=== PATIENT | male | born 1975 | race Hispanic/Latino ===

== ENCOUNTER 2017-05-01 21:04 | Emergency (ER) | payer SELFPAY ==
[2017-05-01] MEDS ORDERED: Phenergan 25 MG INJ IV ONE (21:53)
[2017-05-01] MEDS ORDERED: Hydromorphone 1 mg/ml Ampule IV ONE (21:53)
[2017-05-01] MEDS ORDERED: ROCEPHIN 1 Gm-D5w 50 ml Bag** 1 G/50 ML IVPB IV STA (21:55)
--- NOTE | 2017-05-01 21:57 | ERPHSYRPT ---
- History of Present Illness Time Seen by Provider: 05/01/17 21:38 Source: patient, family (STEP-DAUGHTER) Exam Limitations: no limitations Patient Subjective Stated Complaint: pt states that he mac had fever at home and for approx 9 days he has had pain in his penis and scrotum with swelling in his scrotum and pain when he walks Triage Nursing Assessment: pt awake and alert. 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 skin hot and dry. respriations nonlabored with lungs cta. pt ambulatory with slow gait noted, swelling noted to scrotum Physician History: FOR THE PAST WEEK PT HAS HAD A SUBJECTIVE FEVER, NON-PRODUCTIVE COUGH AND SWELLING IN HIS RIGHT TESTICLE; FOR THE PAST 9 DAYS DYSURIA. Allergies/Adverse Reactions: No Known Drug Allergies Allergy (Unverified 05/01/17 22:21) Hx Tetanus, Diphtheria Vaccination/Date Given: No Hx Influenza Vaccination/Date Given: No Hx Pneumococcal Vaccination/Date Given: No Immunizations Up to Date: No - Review of Systems Constitutional: Fever Respiratory: Cough Genitourinary Symptoms: Dysuria, Testicle Pain (RIGHT) All Other Systems: Reviewed and Negative - Past Medical History Pertinent Past Medical History: No Neurological History: No Pertinent History ENT History: No Pertinent History Cardiac History: No Pertinent History Respiratory History: No Pertinent History Endocrine Medical History: No Pertinent History Musculoskeletal History: No Pertinent History GI Medical History: No Pertinent History History: No Pertinent History Psycho-Social History: No Pertinent History Male Reproductive Disorders: No Pertinent History - Past Surgical History Past Surgical History: Yes Gastrointestinal: Appendectomy - Social History Smoking Status: Never smoker Exposure to second hand smoke: Yes Drug Use: none Patient Lives Alone: No - Nursing Vital Signs Nursing Vital Signs: Initial Vital Signs Temperature 101.5 F 05/01/17 21:21 Pulse Rate 110 H 05/01/17 21:21 Respiratory Rate 16 05/01/17 21:21 Blood Pressure 143/89 05/01/17 21:21 O2 Sat by Pulse Oximetry 97 05/01/17 21:21 Pain Scale Pain Intensity 4 - Physical Exam General Appearance: alert Eye Exam: PERRL/EOMI Ears, Nose, Throat Exam: TMs normal, pharynx normal, moist mucous membranes Neck Exam: normal inspection Respiratory Exam: lungs clear Cardiovascular Exam: normal heart sounds Gastrointestinal/Abdomen Exam: soft, normal bowel sounds Male Genitalia Exam: testicular tenderness (RIGHT TESTICLE MILDLY EDEMATOUS AND TENDER), No hernia Back Exam: normal range of motion Extremity Exam: normal inspection, No pedal edema Neurologic Exam: alert, cooperative Skin Exam: warm, dry SpO2 Interpretation: normal SpO2: 97 Oxygen Delivery: Room Air - Course Nursing assessment & vital signs reviewed: Yes - Radiology Ultrasound Exam Scrotal Ultrasound: Other (TECH REPORT: EPIDIDYMITIS; NO TORSION.) Ordered Tests: Active Orders 24 hr Category Date Time Status IV Insertion STAT Care 05/01/17 21:53 Active TESTICLE [US] Stat Exams 05/01/17 21:55 Ordered AMYLASE Stat Lab 05/01/17 22:05 Completed BLOOD CULTURE Stat Lab 05/01/17 22:05 Received CBC W DIFF Stat Lab 05/01/17 22:05 Completed CMP Stat Lab 05/01/17 22:05 Completed Erythrocyte Sedimentation Rate Stat Lab 05/01/17 22:05 Completed LIPASE Stat Lab 05/01/17 22:05 Completed MAG [MAGNESIUM] Stat Lab 05/01/17 22:05 Completed UA W/ MICROSCOPIC Stat Lab 05/01/17 22:17 Completed Medication Summary Generic Name Dose Route Start Last Admin Trade Name Freq PRN Reason Stop Dose Admin Sodium Chloride 1,000 mls @ 100 mls/hr 05/01/17 22:00 05/01/17 22:21 Sodium Chloride 0.9% 1000 Ml IV 05/31/17 21:59 100 mls/hr .Q10H SUNI Administration Discontinued Medications Generic Name Dose Route Start Last Admin Trade Name Freq PRN Reason Stop Dose Admin Acetaminophen 650 mg 05/01/17 22:01 05/01/17 22:23 Tylenol 325 Mg PO 05/01/17 22:02 650 mg STAT ONE Administration Acetaminophen Confirm 05/01/17 22:18 Tylenol 325 Mg Administered 05/01/17 22:19 Dose 650 mg .ROUTE .STK-MED ONE Hydromorphone HCl 1 mg 05/01/17 21:53 05/01/17 22:28 Hydromorphone 1 Mg/Ml Ampule IV 05/01/17 21:54 1 mg STAT ONE Administration Hydromorphone HCl Confirm 05/01/17 22:18 Hydromorphone 1 Mg/Ml Ampule Administered 05/01/17 22:19 Dose 1 mg .ROUTE .STK-MED ONE Ceftriaxone Sodium/Dextrose 1 g in 50 mls @ 100 mls/hr 05/01/17 21:55 22:31 Rocephin 1 Gm-D5w 50 Ml Bag IV 05/01/17 22:24 100 mls/hr STAT STA Administration Ceftriaxone Sodium/Dextrose Confirm 05/01/17 22:18 Rocephin 1 Gm-D5w 50 Ml Bag Administered 05/01/17 22:19 Dose 1 g in 50 mls @ ud IV .STK-MED ONE Promethazine HCl 12.5 mg 05/01/17 21:53 05/01/17 22:24 Phenergan 25 Mg Inj IV 05/01/17 21:54 12.5 mg STAT ONE Administration Promethazine HCl Confirm 05/01/17 22:17 Phenergan 25 Mg Inj Administered 05/01/17 22:18 Dose 25 mg .ROUTE .STK-MED ONE Lab/Rad Data: Laboratory Result Diagrams 05/01/17 22:05 05/01/17 22:05 Laboratory Results 05/01/17 05/01/17 05/01/17 Range/Units 22:17 22:05 22:05 WBC (4.0-10.5) K/mm3 RBC (4.1-5.6) M/mm3 Hgb (12.5-18.0) gm/dl Hct (42-50) % MCV (78-100) fl MCH (26-32) pg MCHC (32-36) g/dl RDW (11.5-14.0) % Plt Count (150-450) K/mm3 MPV (6-9.5) fl Gran % (36.0-66.0) % Lymphocytes % (24.0-44.0) % Monocytes % (0.0-12.0) % Eosinophils % (0.00-5.0) % Basophils % (0.0-0.4) % Basophils # (0-0.4) ESR 55 H (0-15) mm/hr Sodium (136-145) mEq/L Potassium (3.5-5.1) mEq/L Chloride (98-107) mEq/L Carbon Dioxide (21-32) mEq/L Anion Gap (5-15) MEQ/L BUN (9-20) mg/dL Creatinine (0.55-1.30) mg/dl Estimated GFR ML/MIN Glucose (70-110) MG/DL Calcium (8.5-10.1) mg/dL Magnesium 2.1 (1.8-2.4) mg/dL Total Bilirubin (0.2-1.0) mg/dL AST (15-37) U/L ALT (12-78) U/L Alkaline Phosphatase (46-116) U/L Serum Total Protein (6.4-8.2) gm/dL Albumin (3.4-5.0) g/dL Amylase (25-115) U/L Lipase (73-393) U/L Ur Collection Type VOID Urine Color YELLOW (YELLOW) Urine Appearance CLEAR (CLEAR) Urine pH 6.0 (5-6) Ur Specific [place] 1.015 (1.005-1.025) Urine Protein NEGATIVE (Negative) Urine Ketones NEGATIVE (NEGATIVE) Urine Blood NEGATIVE (0-5) Jesse/ul Urine Nitrite NEGATIVE (NEGATIVE) Urine Bilirubin NEGATIVE (NEGATIVE) Urine Urobilinogen NORMAL (0-1) mg/dL Ur Leukocyte Esterase TRACE (NEGATIVE) Urine Microscopic RBC 0-2 (0-2) /HPF Urine Microscopic WBC 2-5 (0-5) /HPF Urine Bacteria FEW (NEGATIVE) /HPF Urine Mucus SLIGHT (NEGATIVE) /HPF Urine Glucose NEGATIVE (NEGATIVE) mg/dL Specimen Received 05/01/17 2200 05/01/17 05/01/17 Range/Units 22:05 22:05 WBC 13.0 H (4.0-10.5) K/mm3 RBC 4.15 (4.1-5.6) M/mm3 Hgb 13.0 (12.5-18.0) gm/dl Hct 39.0 L (42-50) % MCV 94.0 (78-100) fl MCH 31.3 (26-32) pg MCHC 33.3 (32-36) g/dl RDW 12.7 (11.5-14.0) % Plt Count 243 (150-450) K/mm3 MPV 10.5 H (6-9.5) fl Gran % 69.6 H (36.0-66.0) % Lymphocytes % 15.5 L (24.0-44.0) % Monocytes % 7.8 (0.0-12.0) % Eosinophils % 6.9 H (0.00-5.0) % Basophils % 0.2 (0.0-0.4) % Basophils # 0.03 (0-0.4) ESR (0-15) mm/hr Sodium 139 (136-145) mEq/L Potassium 3.8 (3.5-5.1) mEq/L Chloride 103 (98-107) mEq/L Carbon Dioxide 26.6 (21-32) mEq/L Anion Gap 13.0 (5-15) MEQ/L BUN 14 (9-20) mg/dL Creatinine 1.02 (0.55-1.30) mg/dl Estimated GFR > 60 ML/MIN Glucose 120 H (70-110) MG/DL Calcium 8.9 (8.5-10.1) mg/dL Magnesium (1.8-2.4) mg/dL Total Bilirubin 0.70 (0.2-1.0) mg/dL AST 22 (15-37) U/L ALT 64 (12-78) U/L Alkaline Phosphatase 110 (46-116) U/L Serum Total Protein 8.0 (6.4-8.2) gm/dL Albumin 3.8 (3.4-5.0) g/dL Amylase 54 (25-115) U/L Lipase 182 (73-393) U/L Ur Collection Type Urine Color (YELLOW) Urine Appearance (CLEAR) Urine pH (5-6) Ur Specific [place] (1.005-1.025) Urine Protein (Negative) Urine Ketones (NEGATIVE) Urine Blood (0-5) Jesse/ul Urine Nitrite (NEGATIVE) Urine Bilirubin (NEGATIVE) Urine Urobilinogen (0-1) mg/dL Ur Leukocyte Esterase (NEGATIVE) Urine Microscopic RBC (0-2) /HPF Urine Microscopic WBC (0-5) /HPF Urine Bacteria (NEGATIVE) /HPF Urine Mucus (NEGATIVE) /HPF Urine Glucose (NEGATIVE) mg/dL Specimen Received - Departure Time of Disposition: 23:12 Departure Disposition: Home Clinical Impression: EPIDIDYMITIS Condition: Stable Critical Care Time: No Referrals: DOCTOR,NO FAMILY [Primary Care Provider] - Instructions: Epididymitis Additional Instructions: FOLLOW UP WITH PRIVATE DOCTOR TOMORROW. Prescriptions: Naproxen [Naprosyn] 500 mg PO Q12H PRN PRN #20 tablet PRN Reason: Pain Doxycycline Hyclate 100 mg [Vibramycin 100 MG] 100 mg PO BID #20 tab
[2017-05-01] MEDS ORDERED: Sodium Chloride 0.9% 1000 ML 1,000 ML IV SCH (22:00)
[2017-05-01] MEDS ORDERED: TYLENOL 325 MG PO ONE (22:01)
[2017-05-01] MEDS ORDERED: Phenergan 25 MG INJ ONE (22:17)
[2017-05-01 22:18] LABS: BASOPHIL % 0.2 % (0.0-0.4); Eosinophil % 6.9 % (0.00-5.0); Granulocytes % 69.6 % (36.0-66.0); Lymphocytes % 15.5 % (24.0-44.0); Mean Corpuscular Hemoglobin 31.3 pg (26-32); Mean Platelet Volume 10.5 fl (6-9.5); Monocytes % 7.8 % (0.0-12.0); Platelet Count 243 K/mm3 (150-450); Red Blood Count 4.15 M/mm3 (4.1-5.6); Red Cell Distribution Width 12.7 % (11.5-14.0)
[2017-05-01] MEDS ORDERED: TYLENOL 325 MG ONE (22:18)
[2017-05-01] MEDS ORDERED: Sodium Chloride 0.9% 1000 ML 1,000 ML ONE (22:18)
[2017-05-01] MEDS ORDERED: ROCEPHIN 1 Gm-D5w 50 ml Bag** 1 G/50 ML IVPB IV ONE (22:18)
[2017-05-01] MEDS ORDERED: Hydromorphone 1 mg/ml Ampule ONE (22:18)
[2017-05-01 22:32] LABS: Bilirubin NEGATIVE (NEGATIVE); Blood NEGATIVE Ery/ul (0-5); COMPLETE URINE MICROSCOPIC? YES; Collection Type VOID; Glucose NEGATIVE (NEGATIVE); Leukocyte Esterase TRACE (NEGATIVE)
[2017-05-01 22:33] LABS: ADD URINE CULTURE? NO (NO); Bacteria FEW /HPF (NEGATIVE); Mucus SLIGHT /HPF (NEGATIVE)
[2017-05-01 22:42] LABS: ALBUMIN 3.8 g/dL (3.4-5.0); ALKALINE PHOSPHATASE 110 U/L (46-116); BLOOD UREA NITROGEN 14 mg/dL (9-20); CHLORIDE 103 mEq/L (98-107); Carbon Dioxide 26.6 mEq/L (21-32); Glucose 120 MG/DL (70-110); LIPASE 182 U/L (73-393); Potassium 3.8 mEq/L (3.5-5.1); SGOT/AST 22 U/L (15-37); SGPT/ALT 64 U/L (12-78); SODIUM 139 mEq/L (136-145)
[2017-05-01 23:43] VITALS: BP 128/76; PULSE 96; O2SAT 99
--- NOTE | 2017-05-02 08:49 | XRAY ---
Indication: Pain and swelling. Two-dimensional testicular sonogram performed. Comparison: None Right testicle measures 4.0 x 2.3 x 3.1 cm and the left measures 4.2 x 2.1 x 2.7 cm. Color Doppler flow documented bilaterally. The right testicular color per flow is hyperemic. Right epididymis measures 1.6 x 1.0 cm and the left measures 0.8 x 0.5 cm in short dimension. Right epididymis also demonstrates hypermetabolic: Upper flow. Small hydroceles, right greater than left. No suspicious extratesticular mass. Impression: Right testicular and right epididymal hyperemic color flow favoring orchitis/epididymitis with reactive hydrocele. Left testicular sonogram negative. Comment: Preliminary report was given.
== END 2017-05-01 23:43 | disposition home or self-care (01) ==
LOC: ED 21:04
DX: N45.1 Epididymitis (principal)
CPT/HCPCS: 36000; 36415; 76870; 80053; 81000; 82150; 83690; 83735; 85025; 85652; 87040; 96360; 96361; 96365; 96374; 96375; 99283; 99284; J0696; J1170; J2550; A9270-GY